=== PATIENT | male | born 1995 | race Caucasian/White ===

== ENCOUNTER 2017-09-16 14:54 | Emergency (ER) | payer OTHER ==
[~2017-09-16] VITALS: Ht 193 cm; Wt 111.3 kg
[~2017-09-16 14:54] MED LIST: ATARAX,VISTARIL50 MG PO; LATUDA60 MG PO; NOHOMEMEDS; RISPERDAL3 MG PO; TOBRAMYCIN SULFA5 ML LEFT EYE
[2017-09-16] MEDS ORDERED: LATUDA60 MG PO (16:55)
[2017-09-16 17:21] VITALS: BP 152/73
== END 2017-09-16 17:21 | disposition home or self-care (01) ==
LOC: EME 14:54
DX: S51.812A Laceration without foreign body of left forearm, initial encounter (principal); S61.422A Laceration with foreign body of left hand, initial encounter; F20.9 Schizophrenia, unspecified; W08.XXXA Fall from other furniture, initial encounter; W25.XXXA Contact with sharp glass, initial encounter; Y93.89 Activity, other specified; Z23 Encounter for immunization; F17.200 Nicotine dependence, unspecified, uncomplicated; Z88.0 Allergy status to penicillin
CPT/HCPCS: 73090; 73130; 99281; 99284

== ENCOUNTER 2017-12-04 20:23 | Emergency (ER) | payer OTHER ==
[~2017-12-04] VITALS: Ht 193 cm; Wt 99.2 kg
[2017-12-04] MEDS ORDERED: LATUDA80 MG PO (20:59)
[2017-12-04 21:23] LABS: HEMATOCRIT 37.1 % (38.0-50.0); HEMOGLOBIN 12.8 G/DL (12.5-16.6); MCH 30.8 PG (29.0-34.0); MCHC 34.5 G/DL (30.0-36.0); MCV 89.4 FL (86-99); PLATELET COUNT 252 K/uL (156-360); RBC DIS.WIDTH-CV 12.8 % (11.8-14.6); RBC DIS.WIDTH-SD 42.2 % (39-53); RED BLOOD COUNT 4.15 M/uL (4.00-5.50); WHITE BLOOD COUNT 8.2 K/uL (4.1-10.2)
[2017-12-04 21:28] LABS: ALBUMIN 4.4 g/dL (3.2-4.8); CHLORIDE 107 mEq/L (99-109); POTASSIUM 3.6 mEq/L (3.7-5.4); SODIUM 142 mEq/L (136-147)
[2017-12-04 21:31] LABS: GLUCOSE 106 mg/dL (70-99); TOTAL PROTEIN 6.8 g/dL (6.4-8.3)
[2017-12-04 21:33] LABS: TOTAL BILIRUBIN 0.8 mg/dL (0.0-1.0)
[2017-12-04 21:34] LABS: ALKALINE PHOSPHATASE 36 IU/L (3-129); SERUM ETHYL ALCOHOL < 10 mg/dL
[2017-12-04 21:35] LABS: CREATININE 1.1 mg/dL (0.6-1.3); GFR ESTIMATE (CALCULATED) > 59 mL/min/ (58.99-99999)
[2017-12-04 21:36] LABS: AST (GOT) 26 IU/L (2-34); UREA NITROGEN (BUN) 11 mg/dL (9-23)
[2017-12-04 21:38] LABS: ALT (GPT) 36 IU/L (3-49)
[2017-12-04 21:44] LABS: APPEARANCE CLEAR ((CLEAR)); BILIRUBIN NEGATIVE; BLOOD NEGATIVE; COLOR YELLOW ((YELLOW)); GLUCOSE (STRIP) NEGATIVE; KETONES NEGATIVE; LEUKOCYTES NEGATIVE; NITRITE NEGATIVE; PROTEIN (STRIP) 30; UROBILINOGEN 0.2 MG/DL (0.2-1.0)
[2017-12-04 21:53] LABS: AMPHETAMINE NEGATIVE (500 ng/mL); BARBITURATES NEGATIVE (200 ng/mL); BENZODIAZEPINES NEGATIVE (150 ng/mL); COCAINE NEGATIVE (150 ng/mL); METHADONE NEGATIVE (200 ng/mL); METHAMPHETAMINE NEGATIVE (500 ng/mL); OPIATES (MORPHINE) NEGATIVE (100 ng/mL); OXYCODONE NEGATIVE (100 ng/mL); PHENCYCLIDINE NEGATIVE (25 ng/mL); THC CANNABINOIDS NEGATIVE (50 ng/mL); TRICYCLIC ANTIDEPRESSANTS NEGATIVE (300 ng/mL)
[2017-12-04 21:54] LABS: BUPRENORPHINE NEGATIVE (10 ng/mL); PROPOXYPHENE NEGATIVE (300 ng/mL)
[2017-12-05] MEDS ORDERED: BENADRYL50 MG PO (12:08)
[2017-12-05] MEDS ORDERED: VITAMIN B-625 MG PO (12:09)
[2017-12-05] MEDS ORDERED: [UNRECOGNIZED DRUG - OTHER] PO (12:10)
[2017-12-05 13:50] VITALS: BP 122/58
== END 2017-12-05 13:55 ==
LOC: EME 20:23
PROVIDERS: Emergency Medicine
DX: F20.9 Schizophrenia, unspecified (principal); F17.200 Nicotine dependence, unspecified, uncomplicated; Z88.0 Allergy status to penicillin
CPT/HCPCS: 80053; 81003; 85027; 90837; 99281; 99285; G0480

== ENCOUNTER 2018-01-01 08:13 | Emergency (ER) | payer OTHER ==
[~2018-01-01] VITALS: Ht 193 cm; Wt 98.2 kg
[~2018-01-01 08:13] MED LIST changes: +BENADRYL50 MG PO; +LATUDA80 MG PO; +VITAMIN B-625 MG PO; +[UNRECOGNIZED DRUG - OTHER] PO
[2018-01-01 09:00] LABS: HEMATOCRIT 39.8 % (38.0-50.0); HEMOGLOBIN 13.8 G/DL (12.5-16.6); MCH 30.5 PG (29.0-34.0); MCHC 34.7 G/DL (30.0-36.0); MCV 88.1 FL (86-99); PLATELET COUNT 263 K/uL (156-360); RBC DIS.WIDTH-CV 12.6 % (11.8-14.6); RBC DIS.WIDTH-SD 41.1 % (39-53); RED BLOOD COUNT 4.52 M/uL (4.00-5.50)
[2018-01-01 09:11] LABS: ALBUMIN 4.4 g/dL (3.2-4.8); CHLORIDE 104 mEq/L (99-109); POTASSIUM 4.7 mEq/L (3.7-5.4); SODIUM 140 mEq/L (136-147)
[2018-01-01 09:13] LABS: GLUCOSE 86 mg/dL (70-99)
[2018-01-01 09:15] LABS: TOTAL BILIRUBIN 0.4 mg/dL (0.0-1.0)
[2018-01-01 09:17] LABS: ALKALINE PHOSPHATASE 37 IU/L (3-129); CREATININE 1.4 mg/dL (0.6-1.3); GFR ESTIMATE (CALCULATED) > 59 mL/min/ (58.99-99999)
[2018-01-01 09:18] LABS: UREA NITROGEN (BUN) 18 mg/dL (9-23)
[2018-01-01 09:19] LABS: AST (GOT) 23 IU/L (2-34)
[2018-01-01 09:20] LABS: ALT (GPT) 27 IU/L (3-49); TROP-I INTERPRETATION NEGATIVE; TROPONIN-I < 0.01 ng/mL (0.0-0.30)
[2018-01-01 09:30] LABS: APPEARANCE CLEAR ((CLEAR)); BILIRUBIN NEGATIVE; BLOOD NEGATIVE; COLOR COLORLESS ((YELLOW)); GLUCOSE (STRIP) NEGATIVE; KETONES NEGATIVE; LEUKOCYTES NEGATIVE; NITRITE NEGATIVE; PROTEIN (STRIP) NEGATIVE; SPECIFIC GRAVITY 1.008 (1.000-1.030); UROBILINOGEN 0.2 MG/DL (0.2-1.0)
[2018-01-01 09:42] LABS: AMPHETAMINE NEGATIVE (500 ng/mL); BARBITURATES NEGATIVE (200 ng/mL); BENZODIAZEPINES NEGATIVE (150 ng/mL); BUPRENORPHINE NEGATIVE (10 ng/mL); COCAINE NEGATIVE (150 ng/mL); METHADONE NEGATIVE (200 ng/mL); METHAMPHETAMINE NEGATIVE (500 ng/mL); OPIATES (MORPHINE) NEGATIVE (100 ng/mL); OXYCODONE NEGATIVE (100 ng/mL); PHENCYCLIDINE NEGATIVE (25 ng/mL); PROPOXYPHENE NEGATIVE (300 ng/mL); THC CANNABINOIDS NEGATIVE (50 ng/mL); TRICYCLIC ANTIDEPRESSANTS NEGATIVE (300 ng/mL)
[2018-01-01 10:33] VITALS: BP 129/66
== END 2018-01-01 10:35 | disposition home or self-care (01) ==
LOC: EME 08:13
PROVIDERS: Nurse Practitioner Family
DX: I95.1 Orthostatic hypotension (principal); F17.200 Nicotine dependence, unspecified, uncomplicated; F20.9 Schizophrenia, unspecified; Z88.0 Allergy status to penicillin
CPT/HCPCS: 80053; 81003; 84484; 85027; 93005; J7030